=== PATIENT | female | born 1955 | race African-American/Black ===

== ENCOUNTER → 2017-04-11 | Day surgery (SDC) | payer BC ==
[~2017-04-11] MED LIST: ATORVASTATIN CA10 MG PO; FLEXERIL10 MG PO; FLONASE 0.05% N16 G1; IBUPROFEN800 MG PO
--- NOTE | ~2017-04-11 | OR ---
Unit #: [id number]: [id number] Patient: WALDO GARCIA [id number] [address] [place], [place] [address] [id number] O MR#: [id number] NAME: WALDO GARCIA ROOM: Date of Procedure: 04/11/2017 Admission Date: 04/11/2017 Surgeon: William Nevarez M.D. : 1955 Attending Physician: William Nevarez M.D. Referring Physician: William Nevarez M.D. OPERATIVE REPORT PROCEDURE PERFORMED Esophagogastroduodenoscopy with biopsy and colonoscopy to cecum. INDICATIONS FOR PROCEDURE The patient with history of left upper quadrant pain, also with history of H pylori infection and average risk for colorectal cancer, here for upper endoscopy and colonoscopy. MEDICATIONS Monitored anesthesia. POSTOPERATIVE FINDINGS 1. Small hiatal hernia, nonobstructing esophageal .. 2. Mild diffuse gastritis. Biopsies taken. 3. Normal duodenum and distal duodenum. 4. Colonoscopy completed to cecum. Prep was good. 5. No polyps, masses, or colitis were seen. 6. Small hemorrhoids. PLAN Repeat colonoscopy in 10 years. Follow up on the pathology report. Further recommendations to follow. DESCRIPTION OF PROCEDURE The patient was explained of the procedure, risks, and benefits along with the risks and benefits of anesthesia. She was brought to the endoscopy room. Propofol anesthesia was given. Bite block was placed. The scope was passed down the mouth into the esophagus, stomach, duodenum, and distal duodenum. Findings as described. Biopsies taken. Gently, I pulled the scope out of the patient's mouth. She tolerated this very well. At this time, she was turned around and repositioned for colonoscopy. Rectal exam was done, which was normal. Colonoscope was lubricated, passed up the rectum, advanced under direct vision all the way to the cecum. Cecum was identified by ileocecal valve and appendiceal orifice. I then started to pull the scope out carefully looking. No polyps, masses, or colitis were seen. Mucosa was normal and healthy. I retroflexed in the rectum. Small hemorrhoids seen. Gently the scope was pulled. She tolerated it well. Unit #: [id number] #: [id number] Patient: WALDO GARCIA Dictated by... Rhonda Mendoza/glenda TD: 04/11/2017 09:22 JOB #: [id number] OPERATIVE REPORT Page 1 of 1 X William Nevarez MD PROCEDURE OPERATIVE NOTE
== END | disposition home or self-care (01) ==
LOC: COPS 06:47
DX: Z12.11 Encounter for screening for malignant neoplasm of colon (principal); K29.50 Unspecified chronic gastritis without bleeding; K44.9 Diaphragmatic hernia without obstruction or gangrene; K64.9 Unspecified hemorrhoids; E78.5 Hyperlipidemia, unspecified; Z98.51 Tubal ligation status; Z79.899 Other long term (current) drug therapy
CPT/HCPCS: 88305; 88312